=== PATIENT | female | born 1960 | race Caucasian/White ===

== ENCOUNTER 2025-06-05 14:12 | Emergency (ER) | payer OTHER ==
[~2025-06-05] VITALS: Ht 167.6 cm; Wt 80.0 kg
[2025-06-05 14:14] VITALS: O2SAT 100
[2025-06-05 15:17] LABS: BASOPHILS % 0.8 % (0.0-2.0); EOSINOPHILS % 0.1 % (0.0-5.0); HEMATOCRIT. 35.2 % (36.0-48.0); HEMOGLOBIN. 12.3 g/dL (12.0-16.0); LYMPHOCYTES % 19.3 % (20.0-50.0); MEAN PLATELET VOLUME 7.5 fl (7.4-10.4); MONOCYTES % 6.4 % (2.0-8.0); NEUTROPHILS % 73.4 % (40.0-76.0); PLATELET 197 x1000/uL (130-400); RED BLOOD CELL COUNT 3.71 mill/uL (4.2-5.4); RED CELL DISTRIBUTION WIDTH 13.6 % (11.6-14.6)
[2025-06-05 15:35] LABS: CREATININE 0.7 mg/dL (0.6-1.0); UREA NITROGEN BLOOD 8 mg/dL (9-23)
[2025-06-05 15:45] LABS: CLARITY URINE CLEAR (CLEAR); COLOR URINE YELLOW (YELLOW); GLUCOSE URINE NEGATIVE (NEGATIVE); KETONES URINE TRACE (NEGATIVE); LEUKOCYTE ESTERASE URINE TRACE (NEGATIVE); NITRITE URINE NEGATIVE (NEGATIVE); OCCULT BLOOD URINE NEGATIVE (NEGATIVE); PH URINE 8.5 (4.5-8.0); PROTEIN URINE NEGATIVE (NEGATIVE); SPECIFIC GRAVITY URINE 1.011 (1.005-1.030); UROBILINOGEN URINE 0.2 E.U./dL (0.2-1.0)
[2025-06-05 15:53] LABS: *AMPHETAMINES SCREEN URINE NEGATIVE (NEGATIVE); *BARBITURATES SCREEN URINE NEGATIVE (NEGATIVE); *BENZODIAZEPINES SCREEN URINE NEGATIVE (NEGATIVE); *COCAINE SCREEN URINE NEGATIVE (NEGATIVE); BACTERIA URINE TRACE; CANNABINOID URINE SCREEN NEGATIVE (NEGATIVE); ECSTASY MDMA SCREEN URINE NEGATIVE (NEGATIVE); METHADONE URINE SCREEN NEGATIVE (NEGATIVE); OPIATES URINE SCREEN NEGATIVE (NEGATIVE); PHENCYCLIDINE URINE SCREEN NEGATIVE (NEGATIVE); RBC URINE 0-2 /hpf (0-2); SQUAMOUS EPITHELIAL CELL URINE RARE /lpf (RARE/1+)
[2025-06-05 16:28] LABS: CREATININE 0.6 mg/dL (0.6-1.0); ETHANOL BLOOD < 10 mg/dL (<10); UREA NITROGEN BLOOD 8 mg/dL (9-23)
[2025-06-05 16:29] LABS: TROPONIN I HIGH SENSITIVITY 4 ng/L (3.0-34)
[2025-06-05 16:30] LABS: ASPARTATE AMINOTRANSFERASE 46 IU/L (<34); BILIRUBIN DIRECT 0.4 mg/dL (<=3.0); BILIRUBIN TOTAL 1.8 mg/dL (0.1-1.0); PROTEIN TOTAL 6.9 g/dL (6.0-8.3)
[2025-06-05] MEDS ORDERED: CHLO25CA11 MT (16:38)
[2025-06-05] MEDS: ONDANSETRON HCL 4MG/2ML INJ IV ONE (16:50)
[2025-06-05] MEDS: SODIUM CHLORIDE 0.9% 1,000 ML IV ONE (16:51)
[2025-06-05] MEDS: LORAZEPAM 2MG/ML UD SYRINGE IV SCH (17:08)
[2025-06-05 18:32] VITALS: BP 171/94; PULSE 84; RESP 17; TEMP 36.9; O2SAT 100
== END 2025-06-05 18:36 | disposition home or self-care (01) ==
LOC: ER 14:12 → CANBEDREQ 16:52 → ER 18:36
DX: F10.239 Alcohol dependence with withdrawal, unspecified (principal); R06.02 Shortness of breath; Z79.899 Other long term (current) drug therapy; Y90.0 Blood alcohol level of less than 20 mg/100 ml
CPT/HCPCS: 80076; 80305; 80048; 81003; 80307; 80329; 80320; 82140; 83880; 83690; 83735; 85025; 84484; 36415; 96361; 96374; 96375; 99284; J2060; J2405; J7030; G0480